=== PATIENT | male | born 1975 | race Caucasian/White ===

== ENCOUNTER 2017-04-08 23:19 | Emergency (ER) | payer SELFPAY ==
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
[2017-04-09] MEDS ORDERED: IBUPROFEN 600 MG TABLET PO ONE (02:30)
[2017-04-09 04:02] VITALS: BP 159/90
== END 2017-04-09 03:21 | disposition home or self-care (01) ==
LOC: ER 23:19
DX: S09.90XA Unspecified injury of head, initial encounter (principal); R20.0 Anesthesia of skin; F17.200 Nicotine dependence, unspecified, uncomplicated; Y04.0XXA Assault by unarmed brawl or fight, initial encounter
CPT/HCPCS: 70450; 72125; 99284